=== PATIENT | male | born 1960 | race Caucasian/White ===

== ENCOUNTER 2016-08-22 06:44 | Inpatient (IN) ==
[2016-08-22] MEDS ORDERED: Ketorolac 30 MG/ML VIAL ONE (07:17)
[2016-08-22] MEDS ORDERED: *HR* Rocuronium Bromide 50 MG/5 ML VIAL ONE ×2 (07:17→09:58)
[2016-08-22] MEDS ORDERED: *HR* Midazolam HCl 2 MG/2 ML VIAL ONE (07:17)
[2016-08-22] MEDS ORDERED: *HR* FentaNYL (PF) 100 MCG/2 ML VIAL ONE ×2 (07:17→09:05)
[2016-08-22] MEDS ORDERED: *HR* Propofol 200 MG/20 ML VIAL IVP ONE ×2 (07:17→08:17)
[2016-08-22] MEDS ORDERED: Ondansetron 4 MG/2 ML VIAL ONE (07:17)
[2016-08-22] MEDS ORDERED: Albuterol 2.5 MG/3 ML NEBULIZER ONE (07:18)
[2016-08-22] MEDS ORDERED: cefOXitin 2,000 MG in D5% in Water (Mini-Bag+) 100 ML IVPB ONE (07:20)
[2016-08-22] MEDS ORDERED: Lidocaine -MPF 1% 2 ML VIAL ID ONE (07:20)
[2016-08-22] MEDS ORDERED: Albuterol 2.5 MG/3 ML NEBULIZER IH ONE (07:20)
[2016-08-22] MEDS ORDERED: Ringers Solution, Lactated 1,000 ML IVC SCH (07:30)
[2016-08-22] MEDS ORDERED: *HR* Promethazine 25 MG/ML VIAL IVP PRN ×2 (07:32→11:54)
[2016-08-22] MEDS ORDERED: Metoclopramide 10 MG/2 ML VIAL IVP ONE (07:32)
[2016-08-22] MEDS ORDERED: *HR* Labetalol 100 MG/20 ML MDV IVP PRN (07:32)
[2016-08-22] MEDS ORDERED: Famotidine 20 MG/2 ML VIAL IVP ONE (07:32)
[2016-08-22] MEDS ORDERED: *HR* HYDROmorphone (PF) 1 MG/ML SYRINGE IVP PRN (07:32)
[2016-08-22] MEDS ORDERED: Gabapentin 300 MG CAPSULE PO STA (07:34)
[2016-08-22] MEDS ORDERED: Acetaminophen IV 1,000 MG/100 ML INFUS..BTL IVPB ONE (07:34)
[2016-08-22] MEDS ORDERED: cloNIDine HCl 0.1 MG TABLET PO ONE (07:34)
--- NOTE | 2016-08-22 07:39 | Anesthesia Evaluation PreOp ---
Date of Encounter: 08/22/16 Time of Encounter: 07:36 - Past History Planned Operation: Robotic Low Anterior Resection re: Rectal Ca Cardiac History: Denies any Significant Hx, Hyperlipidemia (not currently medicated) Pulmonary History: Smoker (currently <1ppd past 3 months. Previously 2ppd x 40yrs) PHILOSOPHY LECTURER History: Denies Any Significant HX Other Medical History: Diabetes Type II (maintained on Janumet, Invokamet) Anesthesia History: No Prior Anesthetic Complications, Past Anesthesia (Appy, ORIF R-Arm, Colonoscopy 04/2016), Refuses Transfusion Alcohol Use: heavy (previously 6pk/day - currently "12pk/week"), recent Drug use: none Medications and Allergies Docusate Sodium [Colace] 100 mg PO BID #60 05/07/16 [Rx] Nicotine Patch [Nicoderm] 21 mg TD DAILY #30 patch.td24 05/07/16 [Rx] Ondansetron HCl [Zofran] 4 mg PO TID #90 tablet 05/07/16 [Rx] Prochlorperazine Maleate [Compazine] 10 mg PO Q8HR #90 tablet 05/07/16 [Rx] Magic Mouthwash 10 ml PO Q4H PRN #240 ml 05/10/16 [Rx] Capecitabine [Xeloda] 1,000 mg PO BID #60 tablet 06/19/16 [Rx] Promethazine [Phenergan] 25 mg PO Q8HR PRN #90 tablet 06/19/16 [Rx] Levofloxacin [Levaquin] 750 mg PO DAILY #5 tablet 06/26/16 [Rx] Supplies [SUPPLIES] 1 each .ROUTE DAILY #1 each 06/27/16 [Rx] Supplies [SUPPLIES] 1 each .ROUTE DAILY #1 each 06/27/16 [Rx] Supplies [SUPPLIES] 1 each .ROUTE DAILY #1 each 06/27/16 [Rx] Canagliflozin/Metformin HCl [Invokamet Xr 50-500 mg Tablet] 1 each PO DAILY [History] Sitagliptin Phos/Metformin HCl [Janumet Xr 50-1,000 mg Tablet] 1 each PO BID [History] Allergies No Known Allergies Allergy (Verified 08/22/16 07:25) - Meds/Allergy Pre-op Review Medications Reviewed: Yes Allergies Reviewed: Yes Beta Blockers on Current Med List: No Anesthesia Results - Labs Laboratory Tests 08/15/16 08/15/16 08/15/16 16:31 16:35 16:35 WBC 5.4 Hgb 15.0 Hct 43.1 Plt Count 230 Sodium 140 Potassium 4.1 Chloride 106 Carbon Dioxide 22 BUN 14 Creatinine 0.84 Est GFR (Non-Af Amer) > 60 Glucose 97 Est Mean Plasma Glucose Hemoglobin A1c LDL Cholesterol, Calc 119 H 08/15/16 16:35 WBC Hgb Hct Plt Count Sodium Potassium Chloride Carbon Dioxide BUN Creatinine Est GFR (Non-Af Amer) Glucose Est Mean Plasma Glucose 189 Hemoglobin A1c 8.2 H LDL Cholesterol, Calc - Imaging EKG: image reviewed Anesthesia Exam O2 Sat Height 1.78 m Weight 77.564 kg Vital Signs Temp Pulse Resp BP Pulse Ox 97.9 F 86 16 139/88 95 08/22/16 07:39 08/22/16 07:39 08/22/16 07:39 08/22/16 07:39 08/22/16 07:39 Height: 5'10" Weight: 171# BMI = 25 NPO (# of Hours): MNOc - HEENT Pupil (Motor): Pupils equal, EOMI Mallampati: III Teeth: Normal (Fair dentition with a VERY LOOSE L-upper PREMOLAR) Oral Opening: Greater than 3 - PHILOSOPHY LECTURER LOC: Oriented PHILOSOPHY LECTURER Motor: Normal RUE, Normal LUE, Normal RLE, Normal LLE, Normal Face PHILOSOPHY LECTURER Sensory: Normal: RUE, LUE, RLE, LLE, Face - Cardiac Rhythm: Regular Murmur: None - Pulmonary Breath Sounds: bilateral Clear Anesthesia Assess/Plan ASA Score: 3 (DM, Smoker, EtOHism) Modified [place] Scale for Level of Consciousness: Cooperative, oriented, and tranquil Anesthetic Plan: General Autologous Blood: Yes Monitoring Plan: Standard Monitors Recovery Plan: PACU Anes Supervising Prov Stmt: Pt seen/evaluated, R&B discussed, questions answered and consent obtained.Magui Marcos MD
--- NOTE | 2016-08-22 08:03 | History & Physical Report ---
Date of Encounter: 08/22/16 Time of Encounter: 08:03 24 Hour HP Update - Instructions Instructions: If the History and Physical is less than 30 days old and was completed prior to A.M. admission and or procedure and has NOT been updated on calendar day of procedure please complete this update prior to performing procedure. - Update Patient reports changes in Medical Condition: No Changes in examination, assessment, or condition: No Changes in Medication: No Preop tests/diagnostics Reviewed: Yes Surgery Remains Indicated: Yes Consent for Planned Operative Procedure(s) Verified: Yes - Pre-Operative Checklist Preoperative Checklist Indicated: Yes Prophylactic Antibiotic Ordered: Yes Home Medications Include Beta Lotus: No
[2016-08-22] MEDS ORDERED: Dexamethasone 4 MG/ML VIAL ONE (09:29)
[2016-08-22] MEDS ORDERED: *HR* HYDROmorphone 2 MG/ML SYRINGE ONE (10:09)
[2016-08-22] MEDS ORDERED: Neostigmine Methylsulfate 3 MG/3 ML SYRINGE ONE (10:48)
--- NOTE | 2016-08-22 11:30 | Operative Note ---
Date of procedure: 08/22/16 Pre-op diagnosis: Rectal Cancer Post-op diagnosis: same Procedure: Robotic Low anterior Resection with 33 mm EEA stapling Anesthesia: LYLY Surgeon: Pramod Laird Estimated blood loss (cc): 25 Specimen: rectum Condition: stable Disposition: floor Procedure in Detail: After informed consent, patient taken operating room placed supine position. After adequate sedation anesthesia patient was placed in a lithotomy position. After proper timeout a 12 mm cannula site was placed right superior to the umbilicus. Pneumoperitoneum was greater. A 13 mm cannula was placed in right lower quadrant. 5 mm camera was placed in the right upper quadrant. An 8 mm cannula was placed in subxiphoid region followed by another 8 mm in the left lower quadrant. Patient was placed in a headdown position. The robot was docked over the patient's left hip. Small bowel swept out of the pelvis. Rectosigmoid colon was then grasped and retracted cephalad. The peritoneum was then scored level of the sacral promontory. The left ureter was identified and kept on harm's way. The inferior mesenteric artery was then taken with a vessel sealer. The lateral rectosigmoid stalks were taken down the vessel sealer. The dissection was carried out down to the pelvic floor. The pelvic floor musculature was easily visualized. Rectosigmoid colon was dissected free from the retro-pubic tubercle region and the seminal vesicles were kept out of harm's way. Once it was freed a 45 mm robotic Endo staplers fired across the rectum. Once it was retracted and area was demarcated on the rectosigmoid sigmoid colon for transection. Indocyanine green was infused and we had excellent perfusion. A counterincision was made in the suprapubic region. Dissection carried down the anterior rectus sheath. The rectus muscles were then divided in the midline with Jeanette clamp. Once they were split the rectum and mesorectum were delivered. Huseyin bowel clamps are used to place across the colon proximal and distal and transected. Allis clamps are placed on the bowel and then a pursestring suture device placed on the colon. 3-0 Prolene suture was passed. A pursestring sutures and created and a 33 mm EEA anvil was placed. Suture was tied and secured. Colon was then placed back in the pelvis. The stapler was passed through the anal canal and to the rectal stump and then the spear was placed through the staple line. The anvil was then connected secured and fired. There were 2 excellent donuts. A leak test revealed no leak. At that point the procedure was terminated. All incisions are closed with 0 Vicryl suture and 4-0 Vicryl suture. Marcaine was inserted in the Pfannenstiel incision. He tolerated the procedure well.
[2016-08-22] MEDS ORDERED: Naloxone 0.4 MG/ML INJ IVP PRN (11:54)
[2016-08-22] MEDS ORDERED: *HR* HYDROmorphone 20 MG/20 ML PCA IV PRN (11:54)
[2016-08-22] MEDS: D5% in 0.45% NACL 1,000 ML IVC SCH (12:32)
--- NOTE | 2016-08-22 12:35 | Anesthesia Evaluation Post Op ---
Date of Encounter: 08/22/16 Time of Encounter: 11:50 - Vital Signs Vital Signs: Vital Signs/O2 Sat/Glucose, Most Current Temp Pulse Resp BP Pulse Ox 08/22/16 12:00 97.2 F L 63 12 148/81 97 08/22/16 11:43 97.7 F 67 16 135/94 96 08/22/16 11:33 97.7 F 68 16 131/74 96 08/22/16 11:23 62 16 132/68 92 08/22/16 11:13 65 12 121/75 94 08/22/16 11:03 97.6 F 69 14 118/71 94 - Lungs Lungs: Clear Ascult./Percussion - Airway Airway: Non-obstructed - Cardiovascular Regular Rate - Mental Status Mental Status: Alert & Oriented, Answers Appropriately - Pain Pain Scale: 2 Pain Scale used: Numeric (1 - 10) - Nausea Vomiting Nausea Vomiting: Not Present - Hydration Hydration: Tolerates oral liquids, Lemus catheter - Discharge PostOp Status: Transfer Patient to floor Anes Supervising Prov Stmt: Pt seen/evaluated, VSS and pt has met criteria for discharge to home. - MD Priti
[2016-08-22] MEDS ORDERED: Ondansetron 4 MG/2 ML VIAL IVP PRN (12:50)
[2016-08-22] MEDS: Ketorolac 15 MG/ML VIAL IVP SCH ×2 (13:43→17:08)
[2016-08-22] MEDS: *HR* Heparin 5,000 UNIT/ML VIAL SQ SCH (17:08)
[2016-08-22] MEDS: METFORMIN HCL PO SCH (21:18)
[2016-08-22] MEDS: SITAGLIPTIN PHOS PO SCH (21:18)
[2016-08-23] MEDS: D5% in 0.45% NACL 1,000 ML IVC SCH (00:52)
[2016-08-23] MEDS: Ketorolac 15 MG/ML VIAL IVP SCH ×3 (00:58→14:07)
[2016-08-23 04:45] LABS: Basophils % 0.1 %; Hematocrit 39.6 % (37.5-50.1); Hemoglobin 13.6 g/dL (12.9-16.9); Immature Granulocytes % 0.5 % (0-4); Lymphocytes # 0.4 K/mcL (0.6-4.6); Lymphocytes % 3.3 %; Mean Corpuscular HGB Conc 34.3 g/dL (31.6-35.5); Mean Platelet Volume 10.1 fL (9.4-12.4); Monocytes # 0.8 K/mcL (0.0-1.3); Monocytes % 7.2 %; Neutrophils # 9.8 K/mcL (1.6-8.9); Platelet Count 214 K/mcL (140-400); Red Cell Distribution Width 13.2 % (11.5-14.5); Segmented Neutrophils % 88.9 %
[2016-08-23 05:03] LABS: BUN/Creatinine Ratio 11 (6-26); Blood Urea Nitrogen 9 mg/dL (8-26); Calcium 8.7 mg/dL (8.6-10.8); Carbon Dioxide 26 mEq/L (19-29); Chloride 105 mEq/L (98-109); Glucose 168 mg/dL (70-99); Osmolality,Calculated 287 (280-300); Potassium 4.2 mEq/L (3.5-4.5); Sodium 137 mEq/L (136-145); eGFR For African Americans > 60 (> 60); eGFR For Non-African Americans > 60 (> 60)
[2016-08-23] MEDS: *HR* Heparin 5,000 UNIT/ML VIAL SQ SCH (05:39)
[2016-08-23] MEDS ORDERED: CANAGLIFLOZIN PO SCH (09:00)
[2016-08-23] MEDS ORDERED: Nicotine 21 MG PATCH.TD24 TD SCH (09:00)
[2016-08-23] MEDS ORDERED: METFORMIN HCL PO SCH (09:00)
[2016-08-23] MEDS: METFORMIN HCL PO SCH (12:25)
[2016-08-23] MEDS: SITAGLIPTIN PHOS PO SCH (12:25)
[2016-08-23 14:24] VITALS: BP 156/70
--- NOTE | 2016-08-23 14:32 | Discharge Summary ---
Date of Encounter: 08/23/16 Time of Encounter: 14:00 - Discharge Diagnosis (1) Cancer of rectum Priority: Primary Status: Acute - Discharge Medications Prescriptions: Ibuprofen [Motrin] 600 mg PO Q6HR PRN #50 tab PRN Reason: Mild Pain HYDROcodone/Acet 5/325 mg [[place] 5-325 mg] 1 tab PO Q6H PRN #30 tab PRN Reason: Pain Home Medications: Nicotine Patch [Nicoderm] 21 mg TD DAILY #30 patch.td24 05/07/16 [Rx] Ondansetron HCl [Zofran] 4 mg PO TID #90 tablet 05/07/16 [Rx] Prochlorperazine Maleate [Compazine] 10 mg PO Q8HR #90 tablet 05/07/16 [Rx] Magic Mouthwash 10 ml PO Q4H PRN #240 ml 05/10/16 [Rx] Capecitabine [Xeloda] 1,000 mg PO BID #60 tablet 06/19/16 [Rx] Promethazine [Phenergan] 25 mg PO Q8HR PRN #90 tablet 06/19/16 [Rx] Supplies [SUPPLIES] 1 each .ROUTE DAILY #1 each 06/27/16 [Rx] Supplies [SUPPLIES] 1 each .ROUTE DAILY #1 each 06/27/16 [Rx] Supplies [SUPPLIES] 1 each .ROUTE DAILY #1 each 06/27/16 [Rx] Canagliflozin/Metformin HCl [Invokamet Xr 50-500 mg Tablet] 1 each PO DAILY [History] Sitagliptin Phos/Metformin HCl [Janumet Xr 50-1,000 mg Tablet] 1 each PO BID [History] Docusate Sodium [Colace] 100 mg PO BID PRN #60 08/23/16 [Rx] HYDROcodone/Acet 5/325 mg [[place] 5-325 mg] 1 tab PO Q6H PRN #30 tab 08/23/16 [Rx ] Ibuprofen [Motrin] 600 mg PO Q6HR PRN #50 tab 08/23/16 [Rx] Allergies/Adverse Reactions: Allergies No Known Allergies Allergy (Verified 08/22/16 07:25) General Surgery Exam Initial Vital Signs Temp Pulse Resp BP Pulse Ox 97.9 F 86 16 139/88 95 08/22/16 07:39 08/22/16 07:39 08/22/16 07:39 08/22/16 07:39 08/22/16 07:39 - General physical appearance well developed, well nourished, no distress - Eyes normal ocular movement - ENT normal mucosa, atraumatic, normocephalic - Neck trachea midline - Respiratory normal respiratory effort, clear to auscultation - Cardiovascular Cardiovascular exam: Present: RRR - Abdomen Abdomen general surgery: Present: bowel sounds present, soft, tender (minimal, incisional tenderness) - Incision Incision: Present: clean and dry, intact - Integumentary Integumentary general surgery: Present: warm and dry - Neurologic Present: CN 2-12 grossly intact - Musculoskeletal Present: normal gait, normal posture - Psychiatric Psychiatric general surgery: Present: appropriate, oriented to person, oriented to place, oriented to time, speech is normal, memory intact Date of admission: 08/22/16 11:48 Primary care physician: Charissa Brady [facility] Anticipated date of discharge: 08/23/16 - Patient Status Disposition: Home, Self-Care Condition: Good Functional capacity at discharge: independent ambulation - Discharge Instructions Follow Up With: Pramod Laird DO [Partnered Physician] - 09/04/16 4:05 pm Charissa Brady DO [Primary Care Provider] - Additional Instructions: Surgical instructions: #1 May shower starting 08/24/16, no tub bath X 2 weeks #2 Wash incisions with soap and water and pat dry daily #3 No lifting/pushing/pulling greater than 15 lb. for a total of 4 weeks from the date of surgery #4 No driving until off narcotics for 24 hours and able to safely react in the car #5 May climb stairs - Diet and Activity Activity: other (See additional instructions above) Diet: other (Maintain soft diet and avoid roughage for the next 2 weeks and then advance to regular diet as tolerated) - Hospital Course Hospital course: Mr. Newton is a 55 year old male with a history of rectal cancer who is POD #1 from a Robotic Low anterior Resection with 33 mm EEA stapling with Dr. Laird. He is tolerating liquids without nausea/vomiting. His vital signs are stable and labs are normal. His pain is minimal. He is voiding and ambulating without difficulty. He is having liquid bowel movements and states that he is continent. We will begin discharge planning and plan for outpatient follow-up in the next 10-14 days. - Time Spent with Patient Total time spent providing and/or coordinating discharge services: Less than 30 minutes Labs on day of discharge: Labs from last 24 hours 08/23/16 08/23/16 08/22/16 03:54 03:54 21:40 WBC 11.1 RBC 4.00 L Hgb 13.6 Hct 39.6 MCV 99.0 MCH 34.0 H MCHC 34.3 RDW 13.2 Plt Count 214 MPV 10.1 Immature Gran % 0.5 Seg Neutrophils % 88.9 Lymphocytes % 3.3 Monocytes % 7.2 Eosinophils % 0.0 Basophils % 0.1 Neutrophils # 9.8 H Lymphocytes # 0.4 L Monocytes # 0.8 Eosinophils # 0.0 Basophils # 0.0 Sodium 137 Potassium 4.2 Chloride 105 Carbon Dioxide 26 BUN 9 Creatinine 0.84 Est GFR ( Amer) > 60 Est GFR (Non-Af Amer) > 60 BUN/Creatinine Ratio 11 Glucose 168 H POC Glucose 222 H Calculated Osmolality 287 Calcium 8.7 08/22/16 08/22/16 16:13 07:42 WBC RBC Hgb Hct MCV MCH MCHC RDW Plt Count MPV Immature Gran % Seg Neutrophils % Lymphocytes % Monocytes % Eosinophils % Basophils % Neutrophils # Lymphocytes # Monocytes # Eosinophils # Basophils # Sodium Potassium Chloride Carbon Dioxide BUN Creatinine Est GFR ( Amer) Est GFR (Non-Af Amer) BUN/Creatinine Ratio Glucose POC Glucose 222 H 144 H Calculated Osmolality Calcium
== END 2016-08-23 15:20 | disposition home or self-care (01) | DRG 331 ==
LOC: SAMDAY 06:44 → 3ANU 11:48
PROVIDERS: ADMIT Surgery; ATTEND Surgery